=== PATIENT | female | born 1995 | race Caucasian/White ===

== ENCOUNTER → 2017-10-14 | Outpatient (CLI) | payer BC | LOC: COL.RAD 11:15 | DX: N83.291 Other ovarian cyst, right side (principal); N92.6 Irregular menstruation, unspecified ==

== ENCOUNTER → 2018-07-16 | Outpatient (CLI) | payer BC | LOC: COL.RAD 15:45 | DX: E04.1 Nontoxic single thyroid nodule (principal) ==

== ENCOUNTER → 2018-07-28 | Outpatient (CLI) | payer BC ==
[~2018-07-28] VITALS: Ht 157.5 cm; Wt 62.1 kg
[~2018-07-28] MED LIST: ALTAVERA PO
[2018-07-28 08:24] VITALS: BP 123/85; PULSE 85
[2018-07-28 09:50] VITALS: BP 144/87; PULSE 74
--- NOTE | 2018-07-28 10:05 | NUR ---
pt out to car per ambulation. Denies pain just pressure. Mother with pt.
== END ==
LOC: COL.RAD 08:11
DX: E04.1 Nontoxic single thyroid nodule (principal)

== ENCOUNTER → 2018-08-21 | Outpatient (REF) ==
[2018-08-21 17:26] LABS: ALBUMIN 3.9 gm/dL (3.5-5.0); PHOSPHOROUS 3.8 mg/dL (2.5-4.5)
[2018-08-23 13:35] LABS: THYROGLOBULIN AB SCREEN <1.8 IU/mL (<4.0)
[2018-08-23 13:51] LABS: THYROGLOBULIN TUMOR MARKER 225 ng/mL (())
== END ==
LOC: COL.LAB 16:08
PROVIDERS: Otolaryngology
DX: Z01.89 Encounter for other specified special examinations (principal)

== ENCOUNTER → 2018-08-22 | Outpatient (REF) | LOC: ZMSC 06:37 | DX: Z01.89 Encounter for other specified special examinations (principal) ==

== ENCOUNTER → 2018-08-22 | Outpatient (REF) ==
[2018-08-22 06:44] LABS: ALBUMIN 3.5 gm/dL (3.5-5.0); CALCIUM 8.2 mg/dL (8.4-10.2); PHOSPHOROUS 5.1 mg/dL (2.5-4.5)
[2018-08-22 18:37] LABS: ALBUMIN 3.8 gm/dL (3.5-5.0); CALCIUM 8.3 mg/dL (8.4-10.2); PHOSPHOROUS 4.2 mg/dL (2.5-4.5)
== END ==
LOC: ZMSC 06:30
PROVIDERS: Otolaryngology
DX: Z01.89 Encounter for other specified special examinations (principal)

== ENCOUNTER 2018-09-17 15:00 | Outpatient (RCR) | payer BC ==
[2018-09-16 17:16] VITALS: BP 116/56; PULSE 76; TEMP 98.5
[~2018-09-17] VITALS: Ht 157.5 cm; Wt 60.5 kg
[2018-09-17 15:25] VITALS: BP 124/78; PULSE 78; TEMP 97.4
== END 2018-12-15 ==
LOC: EUO
DX: C73 Malignant neoplasm of thyroid gland (principal)
CPT/HCPCS: A9517; J3240

== ENCOUNTER → 2018-09-24 | Outpatient (CLI) | payer BC | LOC: COL.RAD 15:20 | PROVIDERS: Otolaryngology | DX: C73 Malignant neoplasm of thyroid gland (principal) ==

== ENCOUNTER 2019-04-14 08:30 | Outpatient (RCR) | payer BC ==
[2019-04-13 09:30] VITALS: BP 120/85; PULSE 77; TEMP 98
[~2019-04-14] VITALS: Ht 157.5 cm; Wt 59.4 kg
[~2019-04-14 08:30] MED LIST changes: +SYNTHROID0.1 MG/TAB PO
[2019-04-14 09:00] VITALS: BP 107/64; PULSE 73; TEMP 97.7
== END 2019-07-12 | disposition still patient (30) ==
LOC: EUO
PROVIDERS: Otolaryngology
DX: C73 Malignant neoplasm of thyroid gland (principal)
CPT/HCPCS: J3240

== ENCOUNTER → 2019-04-15 | Outpatient (CLI) | payer SELFPAY | LOC: COL.RAD 08:40 | DX: C73 Malignant neoplasm of thyroid gland (principal) | CPT/HCPCS: A9528 ==

== ENCOUNTER → 2019-04-17 | Outpatient (CLI) | payer BC ==
[2019-04-21 16:16] LABS: THYROGLOBULIN AB SCREEN <1.8 IU/mL (<4.0); THYROGLOBULIN TUMOR MARKER <0.1 ng/mL (())
== END ==
LOC: COL.RAD 07:57
PROVIDERS: Otolaryngology
DX: C73 Malignant neoplasm of thyroid gland (principal)

== ENCOUNTER → 2019-07-06 | Outpatient (CLI) | payer BC | LOC: COL.LAB 09:48 | PROVIDERS: Family Medicine | DX: Z32.01 Encounter for pregnancy test, result positive (principal); C73 Malignant neoplasm of thyroid gland; N93.9 Abnormal uterine and vaginal bleeding, unspecified ==